=== PATIENT | female | born 2000 | race Caucasian/White ===

== ENCOUNTER 2020-08-24 17:43 | Emergency (ER) | payer OTHER ==
[~2020-08-24] VITALS: Ht 165.1 cm; Wt 77.7 kg
[2020-08-24 18:21] LABS: URINE PREG TEST NEGATIVE (NEGATIVE)
[2020-08-24] MEDS ORDERED: [UNRECOGNIZED DRUG - CODE] PO (20:26)
[2020-08-24] MEDS ORDERED: PYRI1TAB5 PO (20:29)
[2020-08-24] MEDS ORDERED: BACTRIM 160MG/800MG DS TAB PO ONE (20:45)
[2020-08-24 20:50] VITALS: BP 118/74
== END 2020-08-24 20:52 | disposition home or self-care (01) ==
LOC: M ED 17:43
DX: N39.0 Urinary tract infection, site not specified (principal); F17.200 Nicotine dependence, unspecified, uncomplicated; Z87.820 Personal history of traumatic brain injury

== ENCOUNTER 2020-09-18 13:39 | Emergency (ER) | payer OTHER ==
[~2020-09-18] VITALS: Ht 165.1 cm; Wt 76.4 kg
[~2020-09-18 13:39] MED LIST: PYRI1TAB5 PO; [UNRECOGNIZED DRUG - CODE] PO
[2020-09-18] MEDS ORDERED: KETOROLAC TROMETHAMINE 10 MG TAB PO ONE (14:20)
[2020-09-18 14:38] LABS: BASO % 0.4 % (0.0-1.0); EOS % 0.4 % (0.0-3.0); HEMOGLOBIN 13.7 g/dl (12.0-15.5); LYMPH # 2.2 10^3/uL (1.5-5.0); LYMPH % 31.5 % (24.0-44.0); MEAN CORPUSCULAR HGB CONC 31.9 g/dl (32.0-36.5); MEAN CORPUSCULAR VOLUME 94.3 fl (80.0-96.0); MONO # 0.4 10^3/uL (0.0-0.8); MONO % 5.6 % (2.0-8.0); NEUTROPHILS # 4.3 10^3/uL (1.5-8.5); NEUTROPHILS % 61.8 % (36.0-66.0); PLATELET COUNT, AUTOMATED 328 10^3/uL (150-450); RED BLOOD COUNT 4.56 10^6/uL (4.00-5.40)
--- NOTE | 2020-09-18 14:44 | REP ---
INDICATION: trauma COMPARISON: None. TECHNIQUE: AP, lateral, bilateral oblique views left 2nd toe. FINDINGS: Evidence for prior surgical intervention at the 1st metatarsal head and 2nd distal phalanx. No acute fracture or dislocation. No subcutaneous emphysema or significant foreign body. IMPRESSION: No subcutaneous emphysema or foreign body.. No acute fracture or dislocation. <Electronically signed by Demetrius Gould > 09/18/20 [id number]
[2020-09-18] MEDS ORDERED: CIPR-249 PO (14:53)
[2020-09-18 15:28] VITALS: BP 110/60
== END 2020-09-18 15:36 | disposition home or self-care (01) ==
LOC: M ED 13:39
DX: L03.032 Cellulitis of left toe (principal); S91.115A Laceration without foreign body of left lesser toe(s) without damage to nail, initial encounter; W26.8XXA Contact with other sharp object(s), not elsewhere classified, initial encounter; Y92.830 Public park as the place of occurrence of the external cause; F17.210 Nicotine dependence, cigarettes, uncomplicated

== ENCOUNTER 2021-10-25 11:27 | Emergency (ER) | payer OTHER ==
[~2021-10-25] VITALS: Ht 165.1 cm; Wt 95.5 kg
[~2021-10-25 11:27] MED LIST changes: +CIPR-249 PO
[2021-10-25] MEDS ORDERED: PREN27TA3 (11:43)
[2021-10-25] MEDS ORDERED: PSEU120T19 PO (12:56)
[2021-10-25 13:06] VITALS: BP 130/78
== END 2021-10-25 13:08 | disposition home or self-care (01) ==
LOC: M ED 11:27
DX: J04.0 Acute laryngitis (principal); J06.9 Acute upper respiratory infection, unspecified; Z87.820 Personal history of traumatic brain injury

== ENCOUNTER 2022-06-08 14:42 | Emergency (ER) | payer OTHER ==
[~2022-06-08] VITALS: Ht 165.1 cm; Wt 97.7 kg
[~2022-06-08 14:42] MED LIST changes: +PREN27TA3; +PSEU120T19 PO
[2022-06-08 18:04] VITALS: BP 115/59
== END 2022-06-08 18:03 | disposition home or self-care (01) ==
LOC: M ED 14:42
DX: O9A.211 Injury, poisoning and certain other consequences of external causes complicating pregnancy, first trimester (principal); S06.0X0A Concussion without loss of consciousness, initial encounter; W00.0XXA Fall on same level due to ice and snow, initial encounter; Z3A.10 10 weeks gestation of pregnancy; Z79.810 Long term (current) use of selective estrogen receptor modulators (SERMs)